=== PATIENT | male | born 1980 | race American Indian/Alaskan Native ===

== ENCOUNTER 2019-03-08 14:52 | Emergency (ER) | payer MEDICAID ==
[~2019-03-08] VITALS: Ht 182.9 cm; Wt 104.0 kg
[~2019-03-08 14:52] MED LIST: METH-360 PO
[2019-03-08] MEDS ORDERED: IBUP-1985 PO (15:47)
[2019-03-08 16:13] VITALS: BP 137/76
== END 2019-03-08 16:16 | disposition home or self-care (01) ==
LOC: ER 14:52
DX: M77.11 Lateral epicondylitis, right elbow (principal); F12.90 Cannabis use, unspecified, uncomplicated; Z79.899 Other long term (current) drug therapy
CPT/HCPCS: 73080; 99283

== ENCOUNTER 2019-07-01 13:52 | Emergency (ER) | payer MEDICAID ==
[~2019-07-01] VITALS: Ht 182.9 cm; Wt 112.5 kg
[~2019-07-01 13:52] MED LIST changes: +IBUP-1985 PO
[2019-07-01 14:05] VITALS: BP 117/77
[2019-07-01] MEDS ORDERED: CARB15DR91 EACH EAR (15:30)
== END 2019-07-01 15:41 | disposition home or self-care (01) ==
LOC: ER 13:53
DX: H61.23 Impacted cerumen, bilateral (principal); F12.90 Cannabis use, unspecified, uncomplicated
CPT/HCPCS: 99282

== ENCOUNTER 2021-05-04 23:37 | Emergency (ER) | payer MEDICAID ==
[~2021-05-04] VITALS: Ht 182.9 cm; Wt 102.0 kg
[~2021-05-04 23:37] MED LIST changes: +CARB15DR91 EACH EAR
[2021-05-05 00:22] VITALS: BP 129/87
== END 2021-05-05 01:54 | disposition left against medical advice (07) ==
LOC: ER 23:38
DX: J00 Acute nasopharyngitis [common cold] (principal); R05.9 Cough, unspecified; R09.89 Other specified symptoms and signs involving the circulatory and respiratory systems; Z53.21 Procedure and treatment not carried out due to patient leaving prior to being seen by health care provider

== ENCOUNTER 2021-05-14 02:45 | Emergency (ER) | payer MEDICAID ==
[~2021-05-14] VITALS: Ht 182.9 cm; Wt 104.2 kg
[2021-05-14 02:49] VITALS: BP 149/75
[2021-05-14] MEDS ORDERED: ketorolac tromethamine 15mg/ml inj. IM ONE (07:40)
== END 2021-05-14 12:38 | disposition home or self-care (01) ==
LOC: ER 02:46
DX: M25.512 Pain in left shoulder (principal); F12.90 Cannabis use, unspecified, uncomplicated; Z79.899 Other long term (current) drug therapy
CPT/HCPCS: 73030; 96372; 99283; J1885

== ENCOUNTER 2021-10-03 11:03 | Day surgery (SDC) | payer MEDICAID ==
[2021-09-30 16:18] LABS: BASOPHILS % (AUTO) 0.1 % (0-1); EOSINOPHILS % (AUTO) 0.1 % (0-6); HEMATOCRIT 38.7 % (42.0-52.0); HEMOGLOBIN 12.7 g/dl (14.0-17.9); LYMPHOCYTES # (AUTO) 0.5 X10'3 (1.1-4.8); LYMPHOCYTES % (AUTO) 3.5 % (21-51); MEAN CORPUSCULAR HEMOGLOBIN 28.4 PG (27.0-31.0); MEAN CORPUSCULAR HGB CONC 32.9 g/dL (33.0-36.5); MEAN CORPUSCULAR VOLUME 86.2 FL (78-98); MONOCYTES # (AUTO) 0.4 X10'3 (0-0.9); MONOCYTES % (AUTO) 3.2 % (2-12); NEUTROPHILS # (AUTO) 12.4 X10'3 (1.8-7.7); NEUTROPHILS % (AUTO) 93.1 % (42-75); PLATELET COUNT 387 X10'3 (140-440); RED BLOOD COUNT 4.49 X10'6 (4.70-6.10); RED CELL DISTRIBUTION WIDTH 14.4 % (11.5-14.5); WHITE BLOOD COUNT 13.3 X10'3 (4.5-11.0)
[2021-09-30 16:21] LABS: APTT 28 SECONDS (22-32)
[2021-09-30 16:28] LABS: ALANINE AMINOTRANSFERASE 43 U/L (12-78); ALBUMIN 2.8 G/DL (3.4-5.0); ALBUMIN/GLOBULIN RATIO 0.6 (1.1-1.5); ALKALINE PHOSPHATASE 66 IU/L (46-116); ANION GAP 13 (8-16); ASPARTATE AMINO TRANSFERASE 18 U/L (10-37); BILIRUBIN,TOTAL 0.7 MG/DL (0.1-1.0); BLOOD UREA NITROGEN 30 MG/DL (7-18); BUN/CREATININE RATIO 25.6 (5.4-32.0); CHLORIDE 105 MMOL/L (99-107); CREATININE 1.17 MG/DL (0.60-1.10); GLUCOSE 125 MG/DL (70-104); POTASSIUM 4.5 MMOL/L (3.5-5.1); SODIUM 141 MMOL/L (135-145); TOTAL PROTEIN 7.7 G/DL (6.4-8.2); eGFR 68 ML/MIN
[2021-09-30 16:31] LABS: CLARITY,URINE CLOUDY (Clear); COLOR,URINE YELLOW (Yellow); GLUCOSE, URINE NEGATIVE (Neg); KETONES,URINE NEGATIVE (Neg); LEUKOCYTE ESTERASE ,URINE NEGATIVE (Neg); NITRITES, URINE NEGATIVE (Neg); OCCULT BLOOD,URINE MODERATE (Neg); PH,URINE 5.5 (4.8-8.0); PROTEIN,URINE >=300 mg/dl (Neg); UA COLLECTION TYPE CLN CATCH MIDSTREAM; UROBILINOGEN,URINE 0.2 E.U/dL (0.2-1.0)
[2021-09-30 17:25] LABS: HYALINE CASTS 0-3 /LPF (NEGATIVE); MUCUS STRANDS FEW /LPF (Neg); SQUAMOUS EPITHELIAL CELL,UR FEW /LPF (FEW)
[2021-09-30 17:26] LABS: BACTERIA,URINE 1+ /HPF (Neg); WBC,URINE 0-4 /HPF (0-4)
[2021-10-03] VITALS (19 sets, daily range): BP systolic 109–142; BP diastolic 68–87
[~2021-10-03] VITALS: Ht 182.9 cm; Wt 102.9 kg
[2021-10-03] MEDS ORDERED: fentaNYL/PF 50MCG/1 ML 2ML syringe IV ONE (12:20)
[2021-10-03] MEDS ORDERED: MIDAZolam 1mg/ml 10ml vial IV ONE (12:20)
[2021-10-03] MEDS ORDERED: LIDOcaine 1%/PF 5ML 10 MG/ML VIAL IJ ONE (12:20)
[2021-10-03] MEDS ORDERED: CALC600T61 PO (13:01)
[2021-10-03] MEDS ORDERED: CHOL400T57 PO (13:01)
[2021-10-03] MEDS ORDERED: PRED20TA PO (13:01)
[2021-10-03] MEDS ORDERED: MULT-1085 PO (13:01)
[2021-10-03] MEDS ORDERED: SULF-15 PO (13:01)
[2021-10-03] MEDS ORDERED: FA/M1TAB PO (13:01)
[2021-10-03 15:20] LABS: BASOPHILS % (AUTO) 0.3 % (0-1); EOSINOPHILS # (AUTO) 0.3 X10'3 (0-0.9); EOSINOPHILS % (AUTO) 3.2 % (0-6); HEMATOCRIT 35.4 % (42.0-52.0); HEMOGLOBIN 11.7 g/dl (14.0-17.9); LYMPHOCYTES # (AUTO) 1.2 X10'3 (1.1-4.8); LYMPHOCYTES % (AUTO) 14.8 % (21-51); MEAN CORPUSCULAR HEMOGLOBIN 28.7 PG (27.0-31.0); MEAN CORPUSCULAR HGB CONC 33.1 g/dL (33.0-36.5); MEAN CORPUSCULAR VOLUME 86.7 FL (78-98); MEAN PLATELET VOLUME 6.8 FL (7.4-10.4); MONOCYTES # (AUTO) 0.8 X10'3 (0-0.9); MONOCYTES % (AUTO) 9.7 % (2-12); NEUTROPHILS # (AUTO) 5.9 X10'3 (1.8-7.7); PLATELET COUNT 352 X10'3 (140-440); RED BLOOD COUNT 4.09 X10'6 (4.70-6.10); RED CELL DISTRIBUTION WIDTH 14.6 % (11.5-14.5); WHITE BLOOD COUNT 8.2 X10'3 (4.5-11.0)
[2021-10-03 17:15] LABS: HEMATOCRIT 34.3 % (42.0-52.0); HEMOGLOBIN 11.5 g/dl (14.0-17.9); MEAN CORPUSCULAR HGB CONC 33.5 g/dL (33.0-36.5); MEAN CORPUSCULAR VOLUME 86.5 FL (78-98); MEAN PLATELET VOLUME 6.7 FL (7.4-10.4); PLATELET COUNT 365 X10'3 (140-440); RED BLOOD COUNT 3.97 X10'6 (4.70-6.10); RED CELL DISTRIBUTION WIDTH 14.9 % (11.5-14.5); WHITE BLOOD COUNT 7.5 X10'3 (4.5-11.0)
== END 2021-10-03 17:45 | disposition home or self-care (01) ==
LOC: SSTAY O 11:03
PROVIDERS: ATTEND Internal Medicine Critical Care Medicine
DX: N04.9 Nephrotic syndrome with unspecified morphologic changes (principal); Z79.899 Other long term (current) drug therapy
CPT/HCPCS: 36415; 50200; 76942; 80053; 81001; 85025; 85027; 85576; 85610; 85730; 86885; 86900; 86901; 86920; J2250; J3490